=== PATIENT | female | born 1970 | race African-American/Black ===

== ENCOUNTER 2016-09-01 07:33 | Emergency (ER) | payer SELFPAY ==
[2016-09-01] MEDS ORDERED: Lisinopril 10 MG TAB ONE (07:53)
[2016-09-01] MEDS ORDERED: Hydrochlorothiazide 25 MG TAB ONE ×2 (07:53→08:10)
== END 2016-09-01 08:13 | disposition home or self-care (01) ==
LOC: MADERS 07:33
DX: I10 Essential (primary) hypertension (principal); Z79.899 Other long term (current) drug therapy
CPT/HCPCS: 99281

== ENCOUNTER 2017-01-05 08:15 | Emergency (ER) | payer SELFPAY | END 2017-01-05 09:00 | disposition home or self-care (01) | LOC: MADERS 08:15 | DX: H10.11 Acute atopic conjunctivitis, right eye (principal); I10 Essential (primary) hypertension; F17.210 Nicotine dependence, cigarettes, uncomplicated; Z79.899 Other long term (current) drug therapy | CPT/HCPCS: 99282 ==

== ENCOUNTER 2020-05-30 10:22 | Emergency (ER) | payer BC, SELFPAY ==
[2020-05-30 11:24] LABS: #Basophils 0.2 thou/uL (0.0-0.2); #Eosinphils 0.1 thou/uL (0.0-0.7); #Lymphocytes 2.3 thou/uL (1.20-3.40); #Monocytes 0.4 thou/uL (0.11-0.59); #Neutrophils 3.6 thou/uL (1.40-6.50); %Basophils 2.5 % (0.0-1.0); %Eosinophils 1.7 % (0.0-10.0); %Lymphocytes 34.8 % (21.0-51.0); %Monocytes 5.7 % (0.0-10.0); %Neutrophils 55.3 % (42.0-75.0); Burr Cells MODERATE= 6-15 cells (100X) (0-1/hpf); Hemoglobin 14.5 g/dL (12.0-16.0); MDiff Complete? YES; Mean Corpuscular HGB CONC 30.5 g/dL (32.0-36.0); Mean Corpuscular Hemoglobin 24.2 pg (27.0-31.0); Mean Corpuscular Volume 79.4 fL (78.0-98.0); Mean Platelet Volume 7.6 fL (7.4-10.4); Platelet Count 248 thou/uL (130-400); Platelet Morphology Comment Appears Adequate; RBC Distribution Width 13.1 % (11.5-14.5); Red Blood Cell (RBC) Count 5.97 mill/uL (4.20-5.40); White Blood Cell (WBC) Count 6.5 thou/uL (4.8-10.8)
[2020-05-30] MEDS ORDERED: Amlodipine 5 MG TAB ONE (11:30)
[2020-05-30 11:32] LABS: ALT (SGPT) 20 U/L (8-55); AST (SGOT) 17 U/L (5-34); Albumin 4.2 g/dL (3.5-5.0); Alkaline Phosphatase 63 U/L (40-110); Anion Gap 14 mmol/L (10-20); BUN (Urea Nitrogen) 12 mg/dL (7.0-18.7); Bilirubin, Total 0.3 mg/dL (0.2-1.2); CK (CPK) 121 U/L (29-168); Calc. Creatinine Clearance 0 mL/min (70-130); Calcium 9.1 mg/dL (7.8-10.44); Carbon Dioxide 25 mmol/L (22-29); Chloride 107 mmol/L (98-107); Globulin 3.4 g/dL (2.4-3.5); Glucose 111 mg/dL (70-105); Potassium 3.9 mmol/L (3.5-5.1); Protein, Total 7.6 g/dL (6.0-8.3); Sodium 142 mmol/L (136-145)
[2020-05-30 11:43] LABS: CKMB 0.7 ng/mL (0-6.6)
[2020-05-30] MEDS ORDERED: Ondansetron ODT 4 MG TAB ONE (11:51)
[2020-05-30] MEDS ORDERED: Ketorolac Tromethamine 30 MG/ML VIAL ONE (11:51)
== END 2020-05-30 12:39 | disposition home or self-care (01) ==
LOC: MADERS 10:22
DX: M79.601 Pain in right arm (principal); I10 Essential (primary) hypertension; F17.290 Nicotine dependence, other tobacco product, uncomplicated; Z79.899 Other long term (current) drug therapy; Z71.6 Tobacco abuse counseling
CPT/HCPCS: 36415; 71045; 80053; 82550; 82553; 84484; 85025; 93005; 96372; 99406; J1885; Q0162

== ENCOUNTER 2021-12-10 05:39 | Outpatient (CLI) | payer OTHER ==
[2021-12-10 14:36] LABS: HIV (1/2) Antibody/Antigen Non-Reactive (NonReactive); HIV 1/2 INDEX 0.23 S/CO (<1.00)
[2021-12-10 20:48] LABS: Chlam.trachomatis by PCR,Urine Not Detected (NotDetected)
== END 2021-12-10 05:40 | disposition home or self-care (01) ==
LOC: MADLAB 05:39
PROVIDERS: ATTEND Family Medicine
DX: Z20.2 Contact with and (suspected) exposure to infections with a predominantly sexual mode of transmission (principal)
CPT/HCPCS: 87086; 87389; 87491; 87591

== ENCOUNTER 2021-12-11 22:42 | Emergency (ER) | payer OTHER ==
[2021-12-11 23:48] LABS: Eosinophils 1 % (0-10); Hemoglobin 15.1 g/dL (12.0-16.0); Lymphocytes 38 % (21-51); MDiff Complete? YES; Mean Corpuscular HGB CONC 31.7 g/dL (32.0-36.0); Mean Corpuscular Hemoglobin 24.1 pg (27.0-31.0); Mean Corpuscular Volume 76.1 fl (78.0-98.0); Mean Platelet Volume 7.6 fL (7.4-10.4); Monocytes 7 % (0-10); Neutrophil 54 % (42-75); Platelet Count 340 thou/uL (130-400); Platelet Morphology Comment Appears Adequate; RBC Distribution Width 12.6 % (11.5-14.5); RBC Morphology Normal; Red Blood Cell (RBC) Count 6.24 mill/uL (4.20-5.40); White Blood Cell (WBC) Count 9.4 thou/uL (4.8-10.8)
[2021-12-11 23:56] LABS: ALT (SGPT) 20 U/L (8-55); AST (SGOT) 21 U/L (5-34); Albumin 4.2 g/dL (3.5-5.0); Alcohol 273 mg/dL (Less than 10); Alkaline Phosphatase 67 U/L (40-110); Anion Gap 20 mmol/L (10-20); BUN (Urea Nitrogen) 9 mg/dL (9.8-20.1); Bilirubin, Total 0.4 mg/dL (0.2-1.2); CK (CPK) 162 U/L (29-168); Calc. Creatinine Clearance 0 mL/min (70-130); Calcium 9.6 mg/dL (7.8-10.44); Carbon Dioxide 22 mmol/L (22-29); Chloride 99 mmol/L (98-107); Estimated GFR 71; Globulin 3.7 g/dL (2.4-3.5); Glucose 138 mg/dL (70-105); Magnesium 1.9 mg/dL (1.6-2.6); Protein, Total 7.9 g/dL (6.0-8.3); Sodium 138 mmol/L (136-145)
[2021-12-12] MEDS ORDERED: Sodium Chloride 0.9% 1,000 ML ONE (00:03)
[2021-12-12 00:23] LABS: Cocaine Metabolite Screen Not Detected (NotDetected); Methamphetamine Not Detected (NotDetected); Phencyclidine (PCP) Not Detected (NotDetected); THC/Cannabinoid Screen Not Detected (NotDetected)
[2021-12-12 00:24] LABS: Amphetamine Not Detected (NotDetected); Barbiturates Screen Not Detected (NotDetected); Benzodiazepine Screen Not Detected (NotDetected); Bilirubin Negative (Negative); Blood, Urine Moderate (Negative); Clarity Clear (Clear); Glucose, Urine (Dipstick) Negative (Negative); Ketone, Urine Negative (Negative); Leukocyte Negative (Negative); Medtox Control Line Valid? VALID (VALID); Methadone Not Detected (NotDetected); Nitrite Negative (Negative); Opiate Screen Not Detected (NotDetected); Oxycodone Screen Not Detected (NotDetected); Protein, Urine (Dipstick) Trace mg/dL (Neg-Trace); Tricyclic Screen Not Detected (NotDetected); Urobilinogen 0.2 mg/dL (Less than 2)
[2021-12-12 00:25] LABS: RBC/HPF 0-3 HPF (0-3); Specific Gravity, Urine 1.005 (1.002-1.036); WBC/HPF 0-3 HPF (0-3)
== END 2021-12-12 08:00 | disposition left against medical advice (07) ==
LOC: MADERS 22:42
DX: R45.851 Suicidal ideations (principal)
CPT/HCPCS: 80053; 80306; 80307; 81003; 81015; 82550; 83735; 84443; 85025; 93005; J7050

== ENCOUNTER 2022-01-07 00:15 | Emergency (ER) | payer OTHER ==
[2022-01-07] MEDS ORDERED: Ketorolac Tromethamine 60 MG/2 ML VIAL ONE (01:32)
[2022-01-07] MEDS ORDERED: Dexamethasone 10 MG/ML VIAL ONE (01:32)
== END 2022-01-07 01:58 | disposition home or self-care (01) ==
LOC: MADERS 00:15
DX: J06.9 Acute upper respiratory infection, unspecified (principal); I10 Essential (primary) hypertension; F17.290 Nicotine dependence, other tobacco product, uncomplicated; Z79.899 Other long term (current) drug therapy; Z20.822 Contact with and (suspected) exposure to COVID-19
CPT/HCPCS: 71045; 87081; 87430; 87804; 96372; J1100; J1885; U0003; U0005

== ENCOUNTER 2022-05-07 03:10 | Emergency (ER) | payer OTHER ==
[2022-05-07] MEDS ORDERED: Ondansetron ODT 4 MG TAB ONE (03:35)
[2022-05-07] MEDS ORDERED: Acetaminophen 500 MG TAB ONE (03:35)
== END 2022-05-07 04:22 | disposition home or self-care (01) ==
LOC: MADERS 03:10
DX: S00.01XA Abrasion of scalp, initial encounter (principal); F17.210 Nicotine dependence, cigarettes, uncomplicated; Y04.2XXA Assault by strike against or bumped into by another person, initial encounter
CPT/HCPCS: 99283; Q0162

== ENCOUNTER 2023-03-04 23:14 | Emergency (ER) | payer OTHER, SELFPAY ==
[2023-03-04] MEDS ORDERED: Amoxicillin/Potassium Clav 875 MG TAB ONE (23:36)
[2023-03-04] MEDS ORDERED: HYDROcodone/Acetaminophen 10/325 mg Tablet ONE (23:37)
== END 2023-03-04 23:48 | disposition home or self-care (01) ==
LOC: MADERS 23:14
DX: K04.7 Periapical abscess without sinus (principal); H92.02 Otalgia, left ear; K02.9 Dental caries, unspecified; I10 Essential (primary) hypertension; F17.200 Nicotine dependence, unspecified, uncomplicated
CPT/HCPCS: 99282

== ENCOUNTER 2023-03-24 09:59 | Outpatient (CLI) | payer OTHER | END 2023-03-24 10:00 | disposition home or self-care (01) | LOC: MADRAD 09:59 | PROVIDERS: ATTEND Internal Medicine | DX: J45.50 Severe persistent asthma, uncomplicated (principal) | CPT/HCPCS: 71046 ==

== ENCOUNTER 2023-09-29 10:43 | Emergency (ER) | payer BC, OTHER ==
[2023-09-30 10:31] LABS: SARS-CoV-2 N1 Positive; SARS-CoV-2 N2 Positive; SARS-CoV-2 RNAse P1 Positive
== END 2023-09-29 11:07 | disposition home or self-care (01) ==
LOC: MADERS 10:43
DX: J06.9 Acute upper respiratory infection, unspecified (principal); I10 Essential (primary) hypertension; F17.200 Nicotine dependence, unspecified, uncomplicated; Z79.899 Other long term (current) drug therapy
CPT/HCPCS: 87635; 99284

== ENCOUNTER 2024-10-17 18:07 | Emergency (ER) | payer OTHER ==
[2024-10-17] MEDS ORDERED: Ketorolac Tromethamine 30 MG (1 mL) VIAL ONE (18:21)
[2024-10-17] MEDS ORDERED: predniSONE 20 MG TAB ONE (18:21)
== END 2024-10-17 18:38 | disposition home or self-care (01) ==
LOC: MADERS 18:07
DX: M10.9 Gout, unspecified (principal); E66.9 Obesity, unspecified; I10 Essential (primary) hypertension; F17.200 Nicotine dependence, unspecified, uncomplicated
CPT/HCPCS: 96372; 99283; J1885; J7512

== ENCOUNTER 2024-11-07 14:53 | Emergency (ER) | payer OTHER | END 2024-11-07 16:06 | disposition short-term general hospital (02) | LOC: MADERS 14:53 | DX: R60.0 Localized edema (principal); M25.562 Pain in left knee; E66.9 Obesity, unspecified; I10 Essential (primary) hypertension; F17.200 Nicotine dependence, unspecified, uncomplicated; Z79.899 Other long term (current) drug therapy | CPT/HCPCS: 99284 ==